=== PATIENT | female | born 1985 | race Caucasian/White ===

== ENCOUNTER 2017-08-27 09:38 | Emergency (ER) | payer MEDICAID ==
[2017-08-27 10:07] VITALS: BP 106/70
[2017-08-27] MEDS ORDERED: ALBUTEROL NEB 2.5 MG/3 ML INH STA (10:27)
[2017-08-27] MEDS ORDERED: IPRATROPIUM 0.2 MG/ML NEB INH STA (10:27)
--- NOTE | 2017-08-27 10:30 | ED Physician Documentation ---
History of Present Illness - Stated complaint Stated Complaint: DIFF BREATHING/28WEEKS PREG - Chief complaint Chief Complaint: Resp - Additonal information Additional information: hx from pt 32 f 28 weeks EGA high risk preg followed at 2/2 crohns hx asthma recent URI sx cough etc now wheezing and painful cough not relieved by albuterol MDI 8 X daily does not want to be on steroids no leg swelling no abd pain bleeding Review of Systems Constitutional: denies: Fever, Chills Throat: denies: Sore throat Cardiac: denies: Chest pain / pressure Respiratory: reports: Dyspnea, Cough GI: denies: Abdominal Pain : reports: Now EGA Musculoskeletal: denies: Extremity pain, Extremity swelling Immunocompromised: denies: Immunocompromised PD PAST MEDICAL HISTORY - Past Medical History GI: Crohn's disease - Past Surgical History Past Surgical History: No - Present Medications Home Medications: Ambulatory Orders Medication Instructions Recorded Confirmed Albuterol 2.5 mg INH Q4H PRN #30 neb 08/27/17 Albuterol Sulf [Ventolin Hfa 1 puffs INH 5XD PRN 08/27/17 08/27/17 Inhaler] Budesonide [Pulmicort] 1 applic IN 1-2XD 08/27/17 08/27/17 Fluticasone/Salmeterol [Advair Hfa 2 puffs IH BID #1 hfa.aer.ad 08/27/17 115-21 Mcg Inhaler] Mesalamine [Apriso] 1 cap PO DAILY 08/27/17 08/27/17 predniSONE [Deltasone] 60 mg PO DAILY 5 Days tablet 08/27/17 - Allergies Allergies/Adverse Reactions: Allergies Allergy/AdvReac Type Severity Reaction Status Date / Time No Known Drug Allergies Allergy Verified 09/06/15 16:07 - Social History Does the pt smoke?: No Smoking Status: Never smoker Does the pt drink ETOH?: No Does the pt have substance abuse?: No - Immunizations Immunizations are current?: Yes PD ED PE NORMAL - Vitals Vital signs reviewed: Yes - General General: Alert and oriented X 3 - HEENT HEENT: PERRL - Neck Neck: Supple, no meningeal sign - Cardiac Cardiac: RRR - Respiratory Respiratory: Other (feliciano wheeze) - Abdomen Abdomen: Soft, Other (gravid) - Derm Derm: Normal color - Extremities Extremities: No edema, No calf tenderness / cord - Neuro Neuro: Alert and oriented X 3, drier helper 2-12 intact, No motor deficit, Normal speech Eye Opening: Spontaneous Motor: Obeys Commands Verbal: Oriented GCS Score: 15 Results - Vitals Vitals: Vital Signs - 24 hr 18 08/27/17 10:02 10:47 Temperature 36.6 C Heart Rate 104 H 93 Respiratory 22 16 Rate Blood Pressure 106/70 O2 Saturation 98 Oxygen O2 Source Room air - Rads (name of study) CXR Radiology: See rad report (neg) PD MEDICAL DECISION MAKING - ED course ED course: no pna on CXR no DVT on doppler sounds more clear after albuterol X 3 and atrovent she declines steroids we discussed advair which has worked well for her before but it is Cat C she req I can [employer] high tension tester for recommendation continue albuterol and pulmicort, may add advair in place of pulmicort d/w pt and she is god with this dc plan - Sepsis Event Vital Signs: Vital Signs - 24 hr 08/27/17 08/27/17 10:02 10:47 Temperature 36.6 C Heart Rate 104 H 93 Respiratory 22 16 Rate Blood Pressure 106/70 O2 Saturation 98 Oxygen O2 Source Room air Departure - Departure Disposition: 01 Home, Self Care Clinical Impression: Asthma Qualifiers: Asthma severity: unspecified severity Asthma persistence: unspecified Asthma complication type: with acute exacerbation Qualified Code(s): J45.901 - Unspecified asthma with (acute) exacerbation Qualifiers: Weeks of gestation: 28 weeks Qualified Code(s): Z3A.28 - 28 weeks gestation of Condition: Good Instructions: Asthma Dc Follow-Up: Colleen Edward MD [Primary Care Provider] - Prescriptions: Albuterol 2.5 mg INH Q4H PRN #30 neb PRN Reason: wheeze and cough Fluticasone/Salmeterol [Advair Hfa 115-21 Mcg Inhaler] 2 puffs IH BID #1 hfa.aer.ad predniSONE [Deltasone] 60 mg PO DAILY 5 Days tablet Comments: I spoke to your OB at the [facility] He advises we can change your pulmicort to advair, to try a nebulizer instead of inhaler for the albuterol, and to give you a prescription for prednisone to take if the advair and nebulizer don't help. I have filled out the form for you to get a nebulizer machine - you need to go to [facility] to get it and will need your insurance company to approve it. Follwo up with your PB Return if worse Discharge Date/Time: 08/27/17 13:40
--- NOTE | 2017-08-27 11:09 | XRAY Report ---
Procedure Date: 08/27/2017 Accession Number: [id number] / [id number] Procedure: XR - Chest 1 View X-Ray CPT Code: 87574 FULL RESULT: EXAM: CHEST RADIOGRAPHY EXAM DATE: 08/27/2017 10:55 AM. CLINICAL HISTORY: Cough wheeze. ? Pna, 28 weeks EGA. COMPARISON: 09/15/2010. TECHNIQUE: 1 view. FINDINGS: Lungs/Pleura: No focal consolidation. Prominent mid and inferior pulmonary vasculature may be physiologic. No pneumothorax or definite pleural effusion. Mediastinum: Within exam limitations, the cardiomediastinal contour is normal. Other: None. IMPRESSION: No radiographically apparent acute abnormality in the chest. RADIA
--- NOTE | 2017-08-27 12:32 | Ultrasound Report ---
Procedure Date: 08/27/2017 Accession Number: [id number] / [id number] Procedure: US - Duplex Ext Veins Bilateral CPT Code: FULL RESULT: EXAM: Duplex Ext Veins Bilateral DATE: 08/27/2017 12:22 AM CLINICAL HISTORY: cough pleuritic CP SOA 28 weeks EGA COMPARISON: None. TECHNIQUE: Real-time sonographic vascular imaging was performed by the linux admin engineer through the lower extremity utilizing both color-flow and Doppler spectral analysis. Multiple corporate representative static images were saved for review. FINDINGS: RIGHT SIDE: Common Femoral Vein (CFV): Normal. Superficial Femoral Vein (SFV) Prox: Normal. Superficial Femoral Vein (SFV) Mid: Normal. Superficial Femoral Vein (SFV) Dist: Normal. Popliteal Vein: Normal. Posterior Tibial Veins: Normal. Peroneal Veins: Normal. LEFT SIDE: Common Femoral Vein (CFV): Normal. Superficial Femoral Vein (SFV) Prox: Normal. Superficial Femoral Vein (SFV) Mid: Normal. Superficial Femoral Vein (SFV) Dist: Normal. Popliteal Vein: Normal. Posterior Tibial Veins: Normal. Peroneal Veins: Normal. IMPRESSION: Negative. No evidence for deep venous thrombosis in either lower extremity. RADIA
== END 2017-08-27 13:40 | disposition home or self-care (01) ==
LOC: ED 09:38
DX: O99.513 Diseases of the respiratory system complicating pregnancy, third trimester (principal); J45.901 Unspecified asthma with (acute) exacerbation; O99.613 Diseases of the digestive system complicating pregnancy, third trimester; K50.90 Crohn's disease, unspecified, without complications; Z3A.28 28 weeks gestation of pregnancy
CPT/HCPCS: 71045; 93970; 94640; 94664; 99283; A9270

== ENCOUNTER 2018-07-18 10:20 | Outpatient (CLI) | payer BC ==
[2018-07-18 17:42] LABS: BASOPHILS # (AUTO) 0.1 10^3/uL (0.0-0.1); BASOPHILS % (AUTO) 0.8 %; EOSINOPHILS # (AUTO) 0.2 10^3/uL (0.0-0.7); EOSINOPHILS % (AUTO) 1.7 %; HGB - HEMOGLOBIN 11.2 g/dL (12.0-16.0); LYMPHOCYTES # (AUTO) 3.2 10^3/uL (1.5-3.5); LYMPHOCYTES % (AUTO) 24.8 %; MEAN CORPUSCULAR HEMOGLOBIN 26.2 pg (27.0-31.0); MEAN CORPUSCULAR HGB CONC 31.6 g/dL (32.0-36.0); MEAN CORPUSCULAR VOLUME 82.9 fL (81.0-99.0); MEAN PLATELET VOLUME 8.1 fL (7.9-10.8); MONOCYTES # (AUTO) 0.8 10^3/uL (0.0-1.0); MONOCYTES % (AUTO) 6.3 %; NEUTROPHILS # (AUTO) 8.5 10^3/uL (1.5-6.6); NEUTROPHILS % (AUTO) 66.4 %; PLT - PLATELET COUNT 567 10^3/uL (130-450); RED BLOOD COUNT 4.29 10^6/uL (4.20-5.40); WHITE BLOOD COUNT 12.8 x10^3/uL (4.8-10.8)
[2018-07-18 18:28] LABS: % IRON SATURATION 5 % (20-50); IRON 20 ug/dL (28-170); TOTAL IRON BINDING CAPACITY 396 ug/dL (250-450); TRANSFERRIN 283 mg/dL (192-382)
== END 2018-07-18 10:21 | disposition home or self-care (01) ==
LOC: LAB.F 10:20
PROVIDERS: ATTEND Family Medicine
DX: D64.9 Anemia, unspecified (principal)
CPT/HCPCS: 36415; 82728; 83540; 84466; 85025

== ENCOUNTER 2018-08-15 12:04 | Outpatient (CLI) | payer BC ==
[2018-08-15 17:53] LABS: BASOPHILS # (AUTO) 0.1 10^3/uL (0.0-0.1); BASOPHILS % (AUTO) 0.4 %; EOSINOPHILS # (AUTO) 0.1 10^3/uL (0.0-0.7); EOSINOPHILS % (AUTO) 0.9 %; HGB - HEMOGLOBIN 12.4 g/dL (12.0-16.0); LYMPHOCYTES # (AUTO) 2.3 10^3/uL (1.5-3.5); LYMPHOCYTES % (AUTO) 16.2 %; MEAN CORPUSCULAR HEMOGLOBIN 25.5 pg (27.0-31.0); MEAN CORPUSCULAR VOLUME 82.3 fL (81.0-99.0); MEAN PLATELET VOLUME 7.8 fL (7.9-10.8); MONOCYTES # (AUTO) 0.3 10^3/uL (0.0-1.0); MONOCYTES % (AUTO) 2.3 %; NEUTROPHILS # (AUTO) 11.5 10^3/uL (1.5-6.6); NEUTROPHILS % (AUTO) 80.2 %; PLT - PLATELET COUNT 590 10^3/uL (130-450); RED BLOOD COUNT 4.87 10^6/uL (4.20-5.40); RED CELL DISTRIBUTION WIDTH 17.8 % (12.0-15.0); WHITE BLOOD COUNT 14.3 x10^3/uL (4.8-10.8)
[2018-08-15 18:13] LABS: % IRON SATURATION 5 % (20-50); IRON 21 ug/dL (28-170); TOTAL IRON BINDING CAPACITY 407 ug/dL (250-450); TRANSFERRIN 291 mg/dL (192-382)
== END 2018-08-15 12:05 | disposition home or self-care (01) ==
LOC: LAB.F 12:04
PROVIDERS: ATTEND Family Medicine
DX: D64.9 Anemia, unspecified (principal)
CPT/HCPCS: 36415; 82728; 83540; 84466; 85025

== ENCOUNTER 2019-09-15 17:22 | Outpatient (CLI) | payer BC ==
[2019-09-15 20:25] LABS: BASOPHILS # (AUTO) 0.1 10^3/uL (0.0-0.1); BASOPHILS % (AUTO) 1.3 %; EOSINOPHILS # (AUTO) 0.2 10^3/uL (0.0-0.7); EOSINOPHILS % (AUTO) 2.1 %; HGB - HEMOGLOBIN 13.8 g/dL (12.0-16.0); LYMPHOCYTES # (AUTO) 2.9 10^3/uL (1.5-3.5); MEAN CORPUSCULAR HEMOGLOBIN 29.9 pg (27.0-31.0); MEAN CORPUSCULAR HGB CONC 32.3 g/dL (32.0-36.0); MEAN CORPUSCULAR VOLUME 92.6 fL (81.0-99.0); MEAN PLATELET VOLUME 10.3 fL (7.9-10.8); MONOCYTES # (AUTO) 0.5 10^3/uL (0.0-1.0); MONOCYTES % (AUTO) 6.5 %; NEUTROPHILS # (AUTO) 3.8 10^3/uL (1.5-6.6); NEUTROPHILS % (AUTO) 50.8 %; PLT - PLATELET COUNT 418 10^3/uL (130-450); RED BLOOD COUNT 4.61 10^6/uL (4.20-5.40); RED CELL DISTRIBUTION WIDTH 12.3 % (12.0-15.0); WHITE BLOOD COUNT 7.5 x10^3/uL (4.8-10.8)
[2019-09-15 20:50] LABS: THYROID STIMULATING HORMONE 1.68 uIU/mL (0.34-5.60)
[2019-09-15 20:54] LABS: FREE T4 (FREE THYROXINE) 0.83 ng/dL (0.58-1.64)
[2019-09-15 20:55] LABS: FREE T3 3.37 pg/mL (2.5-3.9)
[2019-09-15 20:58] LABS: FERRITIN 17.4 ng/mL (11.0-306.8); TOTAL T3 0.94 ng/mL (0.87-1.78)
== END 2019-09-15 17:23 | disposition home or self-care (01) ==
LOC: LAB.S 17:22
PROVIDERS: ATTEND Family Medicine
DX: E03.9 Hypothyroidism, unspecified (principal); R53.83 Other fatigue; D64.9 Anemia, unspecified
CPT/HCPCS: 36415; 82626; 82728; 84439; 84443; 84480; 84481; 84482; 85025